=== PATIENT | female | born 2000 | race Caucasian/White ===

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

== ENCOUNTER 2021-12-31 19:20 | Emergency (ER) | payer OTHER ==
[2021-12-31] MEDS ORDERED: Sodium Chloride 0.9% 1000 ML 1,000 ML IV STA ×2 (20:14→22:56)
[2021-12-31] MEDS ORDERED: TYLENOL 325 MG PO ONE (20:14)
[2021-12-31] MEDS ORDERED: Zofran 4 MG/2 ML VIAL IV ONE (20:14)
[2021-12-31 20:35] LABS: Absolute Neutrophil Ct (ANC) 9.76 (1.4-6.9); Basophil (Absolute #) 0.02 (0-0.4); Eosinophil % 0.3 % (0.00-5.0); Eosinophil (Absolute #) 0.04 (0-0.5); Hematocrit 41.3 % (35-47); Hemoglobin 14.6 gm/dl (12.0-16.0); Lymphocyte (Absolute #) 2.84 (1.0-4.6); Lymphocytes % 20.9 % (24.0-44.0); Mean Cell Volume 86.2 fl (78-100); Mean Corpuscular Hemoglobin 30.5 pg (26-32); Mean Corpuscular Hgb Concent. 35.4 g/dl (32-36); Mean Platelet Volume 10.6 fl (7.5-11.0); Monocytes % 6.6 % (0.0-12.0); Neutrophil % 72.1 % (36.0-66.0); Platelet Count 288 K/mm3 (150-450); Red Blood Count 4.79 M/mm3 (4.1-5.4); Red Cell Distribution Width 12.7 % (11.5-14.0); White Blood Count 13.6 K/mm3 (4.0-10.5)
[2021-12-31 20:47] LABS: ALKALINE PHOSPHATASE 71 U/L (38-126); ANION GAP 19.4 MEQ/L (5-15); BLOOD UREA NITROGEN 12 mg/dL (7-17); CHLORIDE 105 mmol/L (98-107); Carbon Dioxide 17 mmol/L (22-30); Creatinine 1 0.59 mg/dL (0.52-1.04); EST GLOMERULAR FILTRATION RATE > 60.0 ML/MIN; Glucose 86 mg/dL (74-106); LIPASE 39 U/L (23-300); Potassium 3.4 mmol/L (3.5-5.1); SGOT/AST 27 U/L (14-36); SGPT/ALT 22 U/L (0-35); SODIUM 139 mmol/L (137-145); Total Protein 8.9 g/dL (6.3-8.2)
--- NOTE | 2021-12-31 21:02 | ERPHSYRPT ---
- History of Present Illness Time Seen by Provider: 12/31/21 19:22 Source: patient Exam Limitations: no limitations Patient Subjective Stated Complaint: Nausea and vomitting since 0600 am this morning, was having morning sickness about once an am would vomit once and then be fine the rest of the day. C/O severe body aches as well. Fever free . Triage Nursing Assessment: Pt A&Ox3 Skin pink, W&D. pt very anxious at this time, hyperventilating, resp rapid feels nauserated. cool cloth applied and talked pt through breathing exercises to calm pt down. Physician History: 21 years old 2 para 0 at 7 weeks gestation presented in the ER with nausea and multiple episodes of nonprojectile, nonbilious vomiting since 6 AM today. Patient reports she is not able to hold anything down and has been trying on her routine nausea/vomiting medication which does not seem working. She feels weak fatigued tired and dehydrated. Patient reports this is different than her routine morning sickness. Denies any abdominal pain, pelvic cramping, vaginal bleeding or discharge. She has ultrasound done earlier today as a ro utine which showed single IUP with good heart tones. Timing/Duration: today, intermittent, sudden, worse Severity: moderate, severe Associated Symptoms: nausea, vomiting, malaise, weakness, No abdominal pain Allergies/Adverse Reactions: No Known Drug Allergies Allergy (Unverified 06/15/18 17:12) Hx Tetanus, Diphtheria Vaccination/Date Given: Yes Hx Influenza Vaccination/Date Given: No Hx Pneumococcal Vaccination/Date Given: No Immunizations Up to Date: Yes Travel Risk - International Travel Have you traveled outside of the country in past 3 weeks: No - Coronavirus Screening Symptoms: Shortness of Breath, Vomiting/Diarrhea, Headaches/Body Aches/Fatigue Close contact with a COVID-19 positive Pt in past 14-21 Days: No - Vaccine Status Have you recieved a Covid-19 vaccination: No - Review of Systems Constitutional: Fatigue, Weakness Eyes: No Symptoms Ears, Nose, & Throat: No Symptoms Respiratory: No Symptoms Cardiac: No Symptoms Abdominal/Gastrointestinal: Nausea, Vomiting Genitourinary Symptoms: Musculoskeletal: No Symptoms Skin: No Symptoms Neurological: No Symptoms Psychological: No Symptoms Hematologic/Lymphatic: No Symptoms Immunological/Allergic: No Symptoms - Past Medical History Pertinent Past Medical History: No Neurological History: No Pertinent History ENT History: No Pertinent History Cardiac History: No Pertinent History Respiratory History: No Pertinent History Endocrine Medical History: No Pertinent History Musculoskeletal History: No Pertinent History GI Medical History: No Pertinent History History: No Pertinent History Psycho-Social History: No Pertinent History Female Reproductive Disorders: No Pertinent History - Past Surgical History Past Surgical History: Yes (Right wrist) Neuro Surgical History: No Pertinent History Cardiac: No Pertinent History - Social History Smoking Status: Former smoker Exposure to second hand smoke: No Drug Use: none Patient Lives Alone: No - Female History Hx Now: Yes Expected Date of Delivery: 08/18/22 Gestational Age: 7 wks - Nursing Vital Signs Nursing Vital Signs: Initial Vital Signs Temperature 97.9 F 12/31/21 20:06 Pulse Rate 64 12/31/21 20:06 Respiratory Rate 14 12/31/21 20:06 Blood Pressure 130/69 12/31/21 20:06 O2 Sat by Pulse Oximetry 99 12/31/21 20:06 Pain Scale Pain Intensity 0 - Physical Exam General Appearance: no apparent distress, alert Eye Exam: PERRL/EOMI, eyes nml inspection Ears, Nose, Throat Exam: normal ENT inspection, TMs normal, pharynx normal, moist mucous membranes Neck Exam: normal inspection, non-tender, supple, full range of motion Respiratory Exam: normal breath sounds, lungs clear Cardiovascular Exam: regular rate/rhythm, normal heart sounds Gastrointestinal/Abdomen Exam: soft, normal bowel sounds, No tenderness (History of) Back Exam: normal inspection, normal range of motion Extremity Exam: normal inspection, normal range of motion Neurologic Exam: alert, oriented x 3, cooperative Skin Exam: normal color SpO2 Interpretation: normal SpO2: 100 O2 Delivery: Room Air Ordered Tests: Active Orders 24 hr Category Date Time Status IV Insertion STAT Care 12/31/21 20:14 Active NPO (ED) STAT Care 12/31/21 20:14 Active CBC W DIFF Stat Lab 12/31/21 20:20 Completed CMP Stat Lab 12/31/21 20:20 Completed LIPASE Stat Lab 12/31/21 20:20 Completed UA W/RFX CULTURE Stat Lab 12/31/21 22:37 Ordered Medication Summary Generic Name Dose Route Start Last Admin Trade Name Freq PRN Reason Stop Dose Admin Sodium Chloride 1,000 mls @ 999 mls/hr 12/31/21 22:56 Sodium Chloride 0.9% 1000 Ml IV 12/31/21 23:56 .Q1H1M STA Discontinued Medications Generic Name Dose Route Start Last Admin Trade Name Rock PRN Reason Stop Dose Admin Acetaminophen 975 mg 12/31/21 20:14 12/31/21 21:40 Acetaminophen 325 Mg Tablet PO 12/31/21 20:15 975 mg STAT ONE Administration Acetaminophen Confirm 12/31/21 21:39 Acetaminophen 325 Mg Tablet Administered 12/31/21 21:40 Dose 975 mg .ROUTE .STK-MED ONE Acetaminophen Confirm 12/31/21 21:42 Acetaminophen 325 Mg Tablet Administered 12/31/21 21:43 Dose 325 mg .ROUTE .STK-MED ONE Sodium Chloride 1,000 mls @ 999 mls/hr 12/31/21 20:14 12/31/21 22:39 Sodium Chloride 0.9% 1000 Ml IV 12/31/21 21:14 Infused .Q1H1M STA Infusion Sodium Chloride Confirm 12/31/21 21:40 Sodium Chloride 0.9% 1000 Ml Administered 12/31/21 21:41 Dose 1,000 mls @ ud .ROUTE .STK-MED ONE Sodium Chloride Confirm 12/31/21 22:57 Sodium Chloride 0.9% 1000 Ml Administered 12/31/21 22:58 Dose 1,000 mls @ ud .ROUTE .STK-MED ONE Sodium Chloride Confirm 12/31/21 23:01 Sodium Chloride 0.9% 1000 Ml Administered 12/31/21 23:02 Dose 1,000 mls @ ud .ROUTE .STK-MED ONE Ondansetron HCl 4 mg 12/31/21 20:14 12/31/21 21:40 Ondansetron Hcl 4 Mg/2 Ml Vial IV 12/31/21 20:15 4 mg STAT ONE Administration Ondansetron HCl Confirm 12/31/21 21:39 Ondansetron Hcl 4 Mg/2 Ml Vial Administered 12/31/21 21:40 Dose 4 mg .ROUTE .STK-MED ONE Lab/Rad Data: Laboratory Result Diagrams 12/31/21 20:20 12/31/21 20:20 Laboratory Results 12/31/21 12/31/21 Range/Units 20:20 20:20 WBC 13.6 H (4.0-10.5) K/mm3 RBC 4.79 (4.1-5.4) M/mm3 Hgb 14.6 (12.0-16.0) gm/dl Hct 41.3 (35-47) % MCV 86.2 (78-100) fl MCH 30.5 (26-32) pg MCHC 35.4 (32-36) g/dl RDW 12.7 (11.5-14.0) % Plt Count 288 (150-450) K/mm3 MPV 10.6 (7.5-11.0) fl Gran % 72.1 H (36.0-66.0) % Eos # (Auto) 0.04 (0-0.5) Absolute Lymphs (auto) 2.84 (1.0-4.6) Absolute Monos (auto) 0.90 (0.0-1.3) Lymphocytes % 20.9 L (24.0-44.0) % Monocytes % 6.6 (0.0-12.0) % Eosinophils % 0.3 (0.00-5.0) % Basophils % 0.1 (0.0-0.4) % Absolute Granulocytes 9.76 H (1.4-6.9) Basophils # 0.02 (0-0.4) Sodium 139 (137-145) mmol/L Potassium 3.4 L (3.5-5.1) mmol/L Chloride 105 (98-107) mmol/L Carbon Dioxide 17 L (22-30) mmol/L Anion Gap 19.4 H (5-15) MEQ/L BUN 12 (7-17) mg/dL Creatinine 0.59 (0.52-1.04) mg/dL Estimated GFR > 60.0 ML/MIN Glucose 86 (74-106) mg/dL Calcium 10.0 (8.4-10.2) mg/dL Total Bilirubin 1.20 (0.2-1.3) mg/dL AST 27 (14-36) U/L ALT 22 (0-35) U/L Alkaline Phosphatase 71 (38-126) U/L Serum Total Protein 8.9 H (6.3-8.2) g/dL Albumin 5.0 (3.5-5.0) g/dL Lipase 39 (23-300) U/L - Progress Progress: improved Progress Note: 12/31/21 23:11 She is given fluids and Zofran, on reevaluation feeling much better. Work-up consistent with some dehydration. She has ultrasound done today which is positive for single IUP with good heart tones. Do not think she needs another scan and does not have any abdominal pain/pelvic pain/cramping, vaginal bleeding or discharge. Stable for discharge with outpatient follow-up. She is advised to continue with her home medications for nausea and vomiting. Counseled pt/family regarding: lab results, diagnosis, need for follow-up - Departure Departure Disposition: Home Clinical Impression: Nausea/vomiting in Condition: Stable Critical Care Time: No Referrals: AUNG VELEZ MD [Primary Care Provider] - Follow up/PCP as directed (1-2 days for reevaluation) Instructions: Nausea and Vomiting of (DC) Additional Instructions: Drink plenty of fluids. Take Zofran as needed. Follow-up with primary OB for reevaluation in 1 to 2 days. Return to ER if having pelvic cramping, vaginal bleeding discharge etc. Prescriptions: Ondansetron ODT 4 MG [Zofran Odt 4 mg] 1 ea PO QIDPRN PRN #7 tablet PRN Reason: n/v
[2021-12-31] MEDS ORDERED: TYLENOL 325 MG ONE ×2 (21:39→21:42)
[2021-12-31] MEDS ORDERED: Zofran 4 MG/2 ML VIAL ONE (21:39)
[2021-12-31] MEDS ORDERED: Sodium Chloride 0.9% 1000 ML 0 ML ONE (21:40)
[2021-12-31] MEDS ORDERED: Sodium Chloride 0.9% 1000 ML 1,000 ML ONE ×2 (22:57→23:01)
[2021-12-31 23:27] LABS: Appearance CLOUDY (CLEAR); Bilirubin SMALL (NEGATIVE); Glucose NEGATIVE (NEGATIVE); Ketones >=160 (NEGATIVE); Ph 6.5 (5-6); Protein,Urine Dip 100 (Negative); RBC NEGATIVE Ery/ul (0-5); Specific Gravity >=1.030 (1.005-1.025)
[2021-12-31 23:28] LABS: Dipstick done @ ? MAIN LAB; Nitrite NEGATIVE (NEGATIVE); Urobilinogen 1 mg/dL (0-1)
[2021-12-31 23:33] LABS: Bacteria FEW /HPF (NEGATIVE); Epithelial Cells FEW /HPF (FEW); Mucus MODERATE /HPF (NEGATIVE); WBC 51-100 /HPF (0-5)
[2021-12-31 23:36] LABS: Urine Cultured Indicated? YES
[2022-01-01 00:19] VITALS: BP 97/46; PULSE 59; O2SAT 99
== END 2022-01-01 00:40 | disposition home or self-care (01) ==
LOC: ED 19:20
DX: O21.9 Vomiting of pregnancy, unspecified (principal); Z3A.01 Less than 8 weeks gestation of pregnancy; R53.1 Weakness
CPT/HCPCS: 36000; 36415; 80053; 81015; 83690; 85025; 87086; 96360; 96374; 99284; J2405; A9270-GY

== ENCOUNTER 2022-07-23 11:31 | Observation (INO) | payer OTHER ==
[2022-07-23 12:22] LABS: Absolute Neutrophil Ct (ANC) 6.78 x10^3/uL (1.4-6.9); Basophil (Absolute #) 0.02 x10^3/uL (0-0.4); Eosinophil % 0.9 % (0.00-5.0); Eosinophil (Absolute #) 0.09 x10^3/uL (0-0.5); Hematocrit 32.2 % (35-47); Hemoglobin 10.2 g/dL (12.0-16.0); Lymphocyte (Absolute #) 2.19 x10^3/uL (1.0-4.6); Mean Cell Volume 87.3 fL (78-100); Mean Corpuscular Hemoglobin 27.6 pg (26-32); Mean Corpuscular Hgb Concent. 31.7 g/dL (32-36); Mean Platelet Volume 10.4 fL (7.5-11.0); Monocyte (Absolute #) 0.84 x10^3/uL (0.0-1.3); Monocytes % 8.4 % (0.0-12.0); Neutrophil % 68.1 % (36.0-66.0); Platelet Count 281 x10^3/uL (150-450); Red Blood Count 3.69 x10^6/uL (4.1-5.4); Red Cell Distribution Width 12.4 % (11.5-14.0)
[2022-07-23 12:35] LABS: ALBUMIN 3.5 g/dL (3.5-5.0); ALKALINE PHOSPHATASE 215 U/L (38-126); ANION GAP 9.7 MEQ/L (5-15); BLOOD UREA NITROGEN 10 mg/dL (7-17); CHLORIDE 107 mmol/L (98-107); Calcium 8.4 mg/dL (8.4-10.2); Carbon Dioxide 22 mmol/L (22-30); EST GLOMERULAR FILTRATION RATE > 60.0 ML/MIN; Glucose 82 mg/dL (74-106); Potassium 4.1 mmol/L (3.5-5.1); SGOT/AST 20 U/L (14-36); SGPT/ALT 14 U/L (0-35); SODIUM 135 mmol/L (137-145); Total Protein 7.3 g/dL (6.3-8.2)
[2022-07-23 12:41] VITALS: PULSE 80
[2022-07-23 12:45] LABS: Appearance SLIGHTLY CLOUDY (CLEAR); Bilirubin NEGATIVE (NEGATIVE); Glucose NEGATIVE (NEGATIVE)
[2022-07-23 12:46] LABS: Dipstick done @ ? MAIN LAB; Ketones NEGATIVE (NEGATIVE); Nitrite NEGATIVE (NEGATIVE); Ph 6.5 (5-6); Protein,Urine Dip 30 (Negative); RBC NEGATIVE Ery/ul (0-5); Urobilinogen 0.2 mg/dL (0-1)
[2022-07-23 12:54] LABS: Bacteria RARE /HPF (NEGATIVE); Epithelial Cells FEW /HPF (FEW); Mucus SLIGHT /HPF (NEGATIVE); RBC 0-2 /HPF (0-2); WBC 0-2 /HPF (0-5)
[2022-07-23 12:58] LABS: Urine Cultured Indicated? YES
--- NOTE | 2022-07-23 13:34 | XRAY ---
Exam: OB ultrasound limited from 07/23/2022. Comparison: OB ultrasound greater than 14 weeks from 03/30/2022. Indication: Late third trimester with -induced hypertension (PIH). Assess KAYLEE. Findings: A single live intrauterine gestation is seen. cardiac activity was identified with a heart rate of 146 bpm. The amniotic fluid index measured 12.26 cm which is within normal limits. Impression: 1. Amniotic fluid index measured 12.26 cm which is within normal limits for this stage of . 2. Single live intrauterine fetus with a heart rate of 146 bpm.
[2022-07-23 14:24] VITALS: BP 138/84
== END 2022-07-23 14:15 | disposition home or self-care (01) ==
LOC: OB 11:31
PROVIDERS: ADMIT Family Medicine; ATTEND Family Medicine
DX: Z34.83 Encounter for supervision of other normal pregnancy, third trimester (principal); Z3A.36 36 weeks gestation of pregnancy
CPT/HCPCS: 36415; 59025; 76815; 80053; 81015; 85025; 87086; 99213; G0378

== ENCOUNTER 2022-08-10 10:12 | Inpatient (IN) | payer OTHER ==
[2022-08-10] MEDS ORDERED: Cervidil 10 MG VAG SCH (14:30)
[2022-08-10] MEDS ORDERED: TYLENOL EXTRA STRENGTH 500 MG PO PRN (15:53)
[2022-08-10] MEDS ORDERED: BRETHINE 1 MG/ML SQ PRN (15:53)
[2022-08-10] MEDS ORDERED: Lactated Ringers 1,000 ML IV SCH (16:00)
[2022-08-10] MEDS ORDERED: PITOCIN 30 UNITS/ LR 500 ML 30 UNITS/500 ML PLAST..BAG IV SCH (16:00)
[2022-08-10 17:42] LABS: Absolute Neutrophil Ct (ANC) 6.61 x10^3/uL (1.4-6.9); Basophil (Absolute #) 0.03 x10^3/uL (0-0.4); Eosinophil (Absolute #) 0.11 x10^3/uL (0-0.5); Hemoglobin 10.5 g/dL (12.0-16.0); Lymphocyte (Absolute #) 3.02 x10^3/uL (1.0-4.6); Lymphocytes % 28.3 % (24.0-44.0); Mean Cell Volume 81.8 fL (78-100); Mean Corpuscular Hemoglobin 26.9 pg (26-32); Mean Corpuscular Hgb Concent. 32.8 g/dL (32-36); Mean Platelet Volume 11.3 fL (7.5-11.0); Monocyte (Absolute #) 0.88 x10^3/uL (0.0-1.3); Monocytes % 8.2 % (0.0-12.0); Neutrophil % 61.8 % (36.0-66.0); Platelet Count 346 x10^3/uL (150-450); Red Blood Count 3.91 x10^6/uL (4.1-5.4); Red Cell Distribution Width 13.4 % (11.5-14.0); White Blood Count 10.7 x10^3/uL (4.0-10.5)
[2022-08-10 18:10] LABS: Amphetamine,Urine NEGATIVE (NEGATIVE); Barbiturate,Urine NEGATIVE (NEGATIVE); Cocaine,Urine NEGATIVE (NEGATIVE); Methadone,Urine NEGATIVE (NEGATIVE); Opiate,Urine NEGATIVE (NEGATIVE); PCP,Urine NEGATIVE (NEGATIVE); THC,Urine NEGATIVE (NEGATIVE)
[2022-08-10 18:13] LABS: Benzodiazepine,Urine NEGATIVE (NEGATIVE)
[2022-08-10 19:30] LABS: ABO TYPING A; Antibody Screen NEGATIVE (NEGATIVE); RH TYPING NEGATIVE
[2022-08-10] MEDS: Lactated Ringers 1,000 ML IV SCH ×2 (20:22→20:36)
[2022-08-10] MEDS: TYLENOL EXTRA STRENGTH 500 MG PO PRN (20:35)
[2022-08-11] MEDS ORDERED: Zofran 4 MG/2 ML VIAL IV PRN (00:13)
[2022-08-11] MEDS: STADOL 2 MG IV PRN ×2 (00:40→10:40)
[2022-08-11] MEDS: TYLENOL EXTRA STRENGTH 500 MG PO PRN ×2 (00:41→20:33)
[2022-08-11] MEDS: Lactated Ringers 1,000 ML IV SCH ×4 (01:30→20:15)
[2022-08-11] MEDS ORDERED: FENTANYL 2 MCG-BUPIV 0.125%-NS 250 ML Epidur 250 ML EPIDURAL SCH (08:00)
[2022-08-11] MEDS ORDERED: Ephedrine Sulfate 50 MG/ML IV PRN (08:00)
[2022-08-11] MEDS ORDERED: Lactated Ringers 1,000 ML IV ONE (08:00)
[2022-08-11] MEDS ORDERED: Sensorcaine 0.25% 10 ML ONE ×2 (13:39→17:31)
[2022-08-11] MEDS ORDERED: LANSINOH 40 GM TOP PRN (15:53)
[2022-08-11] MEDS ORDERED: TUCKS TP PRN (15:53)
[2022-08-11] MEDS ORDERED: XYLOCAINE 1% HCL 20 ML MDV IJ PRN (15:53)
[2022-08-11] MEDS ORDERED: Dermoplast Spray TP PRN (15:53)
[2022-08-11] MEDS ORDERED: NORCO 5/325 MG PO PRN (21:26)
[2022-08-12 05:37] LABS: Absolute Neutrophil Ct (ANC) 13.04 x10^3/uL (1.4-6.9); Basophil (Absolute #) 0.04 x10^3/uL (0-0.4); Eosinophil % 0.2 % (0.00-5.0); Eosinophil (Absolute #) 0.04 x10^3/uL (0-0.5); Hematocrit 28.7 % (35-47); Hemoglobin 9.3 g/dL (12.0-16.0); Lymphocyte (Absolute #) 2.69 x10^3/uL (1.0-4.6); Lymphocytes % 15.4 % (24.0-44.0); Mean Cell Volume 82.9 fL (78-100); Mean Corpuscular Hemoglobin 26.9 pg (26-32); Mean Corpuscular Hgb Concent. 32.4 g/dL (32-36); Mean Platelet Volume 11.6 fL (7.5-11.0); Monocyte (Absolute #) 1.62 x10^3/uL (0.0-1.3); Monocytes % 9.3 % (0.0-12.0); Neutrophil % 74.5 % (36.0-66.0); Platelet Count 284 x10^3/uL (150-450); Red Blood Count 3.46 x10^6/uL (4.1-5.4); Red Cell Distribution Width 13.8 % (11.5-14.0); White Blood Count 17.5 x10^3/uL (4.0-10.5)
[2022-08-12 06:39] LABS: Slide Review 1 YES
--- NOTE | 2022-08-12 07:12 | PCM.NOTE ---
Date and Time: 08/12/22710 Subjective Assessment: mild lochia, pain is mild. tolerating po. no problems or concerns. Objective Exam General Appearance: no apparent distress Respiratory Exam: normal breath sounds, lungs clear, No respiratory distress Cardiovascular Exam: regular rate/rhythm, normal heart sounds Gastrointestinal/Abdomen Exam: soft (fundus firm) Extremity Exam: normal inspection, normal range of motion OBJECTIVE DATA Vital Signs: Vital Signs - 24 hr Temp Pulse Resp BP BP Pulse Ox 08/12/22 02:00 99.0 F 101 H 20 134/76 96 08/11/22 23:30 98.8 F 103 H 18 129/71 97 08/11/22 22:30 98.9 F 95 H 137/69 08/11/22 21:30 109 H 18 133/75 08/11/22 21:15 113 H 18 124/71 08/11/22 21:00 99.3 F 113 H 20 141/65 08/11/22 20:45 101 H 124/64 08/11/22 20:30 110 H 20 143/67 08/11/22 20:01 155 H 165/67 97 08/11/22 20:00 112 H 142/63 97 08/11/22 19:45 130 H 146/65 98 08/11/22 19:30 134 H 100 08/11/22 19:15 114 H 121/72 98 08/11/22 19:00 99.8 F 117 H 18 132/75 99 08/11/22 18:45 98.7 F 141 H 18 132/61 99 08/11/22 18:30 98.7 F 123 H 18 132/61 99 08/11/22 18:15 98.7 F 140 H 18 115/60 99 08/11/22 18:00 98.7 F 111 H 18 118/57 99 08/11/22 17:45 98.7 F 91 H 18 110/57 99 08/11/22 17:30 98.7 F 77 18 134/76 99 08/11/22 17:15 98.7 F 100 H 18 134/75 99 08/11/22 17:00 98.7 F 84 18 147/78 99 08/11/22 16:45 98.7 F 77 18 138/77 99 08/11/22 16:30 98.7 F 73 18 139/84 99 08/11/22 16:15 98.7 F 109 H 18 119/76 99 08/11/22 16:00 98.7 F 103 H 18 117/72 131/67 99 08/11/22 15:45 98.7 F 100 H 18 117/74 99 08/11/22 15:30 98.7 F 104 H 18 111/62 99 08/11/22 15:15 98.7 F 101 H 18 109/58 99 08/11/22 15:00 98.7 F 89 18 118/61 99 08/11/22 14:45 98.7 F 100 H 18 137/76 99 08/11/22 14:30 98.7 F 76 18 122/57 99 08/11/22 14:15 98.1 F 83 18 114/60 99 08/11/22 14:00 98.1 F 80 18 109/57 99 08/11/22 13:45 98.1 F 80 18 109/56 99 08/11/22 13:30 98.0 F 72 18 120/69 99 08/11/22 13:15 98.0 F 75 18 146/79 99 08/11/22 13:00 98.0 F 86 18 134/79 99 08/11/22 12:45 98.0 F 81 18 125/75 99 08/11/22 12:30 98.0 F 96 H 18 121/87 99 08/11/22 12:00 98.0 F 85 18 123/89 131/67 99 08/11/22 11:45 98.0 F 75 18 121/78 99 08/11/22 11:30 98.0 F 75 18 134/68 99 08/11/22 11:15 98.0 F 85 18 128/78 99 08/11/22 11:00 98.0 F 62 18 126/71 99 08/11/22 10:45 98.0 F 67 18 140/83 99 08/11/22 10:30 98.0 F 74 18 138/84 99 08/11/22 10:15 98.0 F 71 18 130/81 99 08/11/22 10:00 98.0 F 80 18 119/75 99 08/11/22 09:45 98.0 F 80 18 119/75 99 08/11/22 09:30 98.0 F 80 18 136/87 99 08/11/22 09:15 98.0 F 88 18 134/85 99 08/11/22 09:00 98.0 F 97 H 18 125/72 99 08/11/22 08:45 98.0 F 102 H 18 130/79 99 08/11/22 08:30 98.0 F 89 18 132/71 99 08/11/22 08:15 98.0 F 102 H 18 124/77 99 08/11/22 08:00 98.0 F 90 18 118/72 131/67 99 08/11/22 07:45 98.0 F 71 18 133/76 99 08/11/22 07:30 98.0 F 73 18 134/72 99 08/11/22 07:15 98.0 F 79 18 136/88 99 Pain Assessment - Last Documented Pain Intensity [Posterior] 0 Pain Intensity 0 Pain Scale Used 0-10 Pain Scale Intake and Output: Intake & Output 08/09/22 08/10/22 08/11/22 08/12/22 11:59 11:59 11:59 11:59 Intake Total 3399 4977 Balance 3398 497 Weight 104.78 kg Lab Results: Lab Results-Last 24 Hours 08/12/22 Range/Units 04:12 WBC 17.5 H (4.0-10.5) x10^3/uL RBC 3.46 L (4.1-5.4) x10^6/uL Hgb 9.3 L (12.0-16.0) g/dL Hct 28.7 L (35-47) % MCV 82.9 (78-100) fL MCH 26.9 (26-32) pg MCHC 32.4 (32-36) g/dL RDW 13.8 (11.5-14.0) % Plt Count 284 (150-450) x10^3/uL MPV 11.6 H (7.5-11.0) fL Gran % 74.5 H (36.0-66.0) % Immature Gran % (Auto) 0.4 (0.00-0.4) % Nucleat RBC Rel Count 0.0 (0.00-0.1) % Eos # (Auto) 0.04 (0-0.5) x10^3/uL Immature Gran # (Auto) 0.07 H (0.00-0.03) x10^3u/L Absolute Lymphs (auto) 2.69 (1.0-4.6) x10^3/uL Absolute Monos (auto) 1.62 H (0.0-1.3) x10^3/uL Absolute Nucleated RBC 0.00 (0.00-0.01) x10^3u/L Lymphocytes % 15.4 L (24.0-44.0) % Monocytes % 9.3 (0.0-12.0) % Eosinophils % 0.2 (0.00-5.0) % Basophils % 0.2 (0.0-0.4) % Absolute Granulocytes 13.04 H (1.4-6.9) x10^3/uL Basophils # 0.04 (0-0.4) x10^3/uL Slides for Path Review YES Multi-Disciplinary Progress Notes: Multi-Disciplinary Progress Notes 08/11/22 20:27 Respiratory Note by Minoo Simpson I WAS CALLED TO BE ON STANDBY TO HELP WITH THE CARE OF THIS INFANT AFTER DELIVERY. SKIN TO SKIN WAS DONE IMMEDIATELY AFTER FOR APPROXIMATELY ONE [place]. THE WAS THEN BROUGHT TO THE WARMER AND DRIED. CLEAR BS WERE HEARD AND THE BABY HAD A SPO2 READING OF 100% APPROXIMATELY 4 MINUTES AFTER . HEART RATE AND RESPIRATORY RATE WERE STABLE. VERY LITTLE SECRETIONS WERE SUCTIONED OUT OF THE 'S MOUTH. NO FURTHER RESPIRATORY INTERVENTION WAS NEEDED AT THIS TIME. Initialized on 08/11/22 20:27 - END OF NOTE Assessment/Plan (1) Vaginal delivery Current Visit: Yes Status: Acute Assessment & Plan: routine pp care Code(s): O80 - ENCOUNTER FOR FULL-TERM UNCOMPLICATED DELIVERY (2) Second degree perineal laceration during delivery Current Visit: Yes Status: Acute Code(s): O70.1 - SECOND DEGREE PERINEAL LACERATION DURING DELIVERY
[2022-08-12] MEDS: TYLENOL EXTRA STRENGTH 500 MG PO PRN ×2 (08:50→18:08)
[2022-08-12] MEDS: FERREX 150 PO SCH (09:48)
[2022-08-12] MEDS: Docusate Sodium 100 MG PO SCH ×2 (09:48→21:58)
[2022-08-12] MEDS ORDERED: Adacel Vial IM ONE (10:00)
[2022-08-12] MEDS ORDERED: Rhogam Plus 300 MCG IM ONE (15:53)
[2022-08-12 17:34] LABS: HBsAg Screen Negative (Negative); HIV Screen 4th Generation wRfx Non Reactive (Non Reactive); RPR Non Reactive (Non Reactive)
[2022-08-12] MEDS: MOTRIN 400 MG PO PRN (20:39)
[2022-08-13] MEDS: MOTRIN 400 MG PO PRN (04:15)
--- NOTE | 2022-08-13 07:31 | PCM.DS ---
Discharge Summary Date of Admission: 08/11/22 12:47 Admitting Physician: AUNG VELEZ Consults: Consults on Case 08/11/22 08:00 Notify Anesthesia Provider PRN 08/12/22 09:00 Navigation ONCE Primary Care Provider: AUNG VELEZ Allergies Allergies No Known Drug Allergies Allergy (Verified 08/10/22 19:17) Hospital Summary - Hospital Course Hospital Course: patient had uncomplicated , no complications. and well bonded with - Vitals & Intake/Output Vital Signs: Vital Signs Temperature 98.3 F 08/13/22 02:00 Pulse Rate 67 08/13/22 02:00 Respiratory Rate 20 08/13/22 02:00 Blood Pressure 122/66 08/13/22 02:00 O2 Sat by Pulse Oximetry 98 08/13/22 02:00 Intake & Output: Intake & Output 08/10/22 08/11/22 08/12/22 08/13/22 11:59 11:59 11:59 11:59 Intake Total 3395 4979 3629 Balance 3395 4979 3629 Weight 104.78 kg - Lab Result Diagrams: 08/12/22 04:12 Lab Results-Last 24 Hrs: Lab Results-Last 24 Hours 08/10/22 08/10/22 08/11/22 Range/Units 05:40 05:40 21:50 RPR Non Reactive (Non Reactive) Hep Bs Antigen Negative (Negative) HIV 1&2 Ab/P24 Ag 4thGn Non Reactive (Non Reactive) Screen SEE SEPARATE REPORT Micro Results-Entire Visit: Microbiology 08/11/22 16:23 Urine Culture - Preliminary Catherized NO GROWTH TO DATE - Procedures and Test Procedures and Tests throughout Hospitalization: Therapy Orders & Screens 08/11/22 19:50 Standby STAT Comment: Diagnosis: IUP Discharge Exam General Appearance: no apparent distress, alert Neurologic Exam: alert Respiratory Exam: normal breath sounds, lungs clear, No respiratory distress Cardiovascular Exam: regular rate/rhythm, normal heart sounds Gastrointestinal/Abdomen Exam: soft, No tenderness, No mass Extremity Exam: normal inspection, normal range of motion Skin Exam: normal color, warm, dry Final Diagnosis/Problem List - Final Discharge Diagnosis/Problem (1) Vaginal delivery Current Visit: Yes Status: Acute Code(s): O80 - ENCOUNTER FOR FULL-TERM UNCOMPLICATED DELIVERY (2) Second degree perineal laceration during delivery Current Visit: Yes Status: Acute Code(s): O70.1 - SECOND DEGREE PERINEAL LACERATION DURING DELIVERY - Discharge Disposition: Home, Self-Care Condition: Stable Prescriptions: Continue Vit No.179/Iron/Folic [ Tablet] 1 mg PO DAILY Famotidine [Zantac-360 (Famotidine)] 20 mg PO DAILY Follow up with: AUNG VELEZ MD [Primary Care Provider] -
[2022-08-13] MEDS: Docusate Sodium 100 MG PO SCH (09:29)
[2022-08-13] MEDS: FERREX 150 PO SCH (09:29)
[2022-08-13 14:25] VITALS: BP 143/82; PULSE 82; O2SAT 96
== END 2022-08-13 14:00 | disposition home or self-care (01) | DRG 807 ==
LOC: OB 12:47 → OBSVTOIN 08-11 12:47
PROVIDERS: ADMIT Family Medicine; ATTEND Family Medicine
PROC: 10E0XZZ Delivery of Products of Conception, External Approach (ICD-10-PCS; principal; 2022-08-11)
PROC: 0KQM0ZZ Repair Perineum Muscle, Open Approach (ICD-10-PCS; 2022-08-11)
DX: O70.1 Second degree perineal laceration during delivery (principal); Z37.0 Single live birth; O13.4 Gestational [pregnancy-induced] hypertension without significant proteinuria, complicating childbirth; Z3A.39 39 weeks gestation of pregnancy; Z20.828 Contact with and (suspected) exposure to other viral communicable diseases
CPT/HCPCS: 36415; 80307; 85025; 85461; 86592; 86850; 86900; 86901; 87086; 87340; 87389; 90471; 90715; 94799; 96372; 99213; G0378; J0595; J2405; J2590; J2790; A9270-GY

== ENCOUNTER 2024-05-28 05:05 | Inpatient (IN) | payer OTHER ==
[~2024-05-28 05:05] MED LIST: BRETHINE 1 MG/ML SQ PRN; Lactated Ringers 1,000 ML IV ONE; Lactated Ringers 1,000 ML IV SCH; Nubain 10 MG/ML IV PRN; PITOCIN 30 UNITS/ LR 500 ML 30 UNITS/500 ML PLAST..BAG IV SCH; STADOL 2 MG IV PRN; XYLOCAINE 1% HCL 20 ML MDV IJ PRN
[2024-05-28 05:59] LABS: Absolute Neutrophil Ct (ANC) 4.25 x10^3/uL (1.56-6.13); BASOPHIL % 0.5 % (0.1-1.2); Basophil (Absolute #) 0.04 x10^3/uL (0.01-0.08); Eosinophil % 1.1 % (0.7-5.8); Eosinophil (Absolute #) 0.09 x10^3/uL (0.04-0.36); Hematocrit 33.9 % (34.1-44.9); Hemoglobin 11.1 g/dL (11.2-15.7); IMMATURE GRAN # 0.04 x10^3u/L (0.001-0.031); IMMATURE GRAN % 0.5 % (0.001-0.429); Lymphocyte (Absolute #) 3.17 x10^3/uL (1.18-3.74); Lymphocytes % 39.1 % (19.3-51.7); Mean Cell Volume 84.8 fL (79.4-94.8); Mean Corpuscular Hemoglobin 27.8 pg (25.6-32.2); Mean Corpuscular Hgb Concent. 32.7 g/dL (32.2-35.5); Mean Platelet Volume 11.1 fL (9.4-12.3); Monocyte (Absolute #) 0.52 x10^3/uL (0.24-0.86); Monocytes % 6.4 % (4.7-12.5); Neutrophil % 52.4 % (34.0-71.1); Platelet Count 252 x10^3/uL (182-369); Red Cell Distribution Width 17.1 % (11.7-14.4); White Blood Count 8.1 x10^3/uL (3.98-10.04)
[2024-05-28 06:07] LABS: Appearance Clear (Clear); Bacteria Moderate /HPF (None Seen); Bilirubin Negative (Negative); Blood Negative (Negative); Epithelial Cells Moderate /HPF (None Seen); Glucose, Urine Negative (Negative); Hyaline Casts NONE SEEN /LPF (0-2); Ketones Negative (Negative); Leukocyte Esterase Small (Negative); Nitrite Negative (Negative); Protein,Urine Dip Trace (Negative); RBC 0-2 /HPF (0-5)
[2024-05-28] MEDS: PITOCIN 30 UNITS/ LR 500 ML 30 UNITS/500 ML PLAST..BAG IV SCH (06:15)
[2024-05-28 06:24] LABS: Amphetamine,Urine NEGATIVE (NEGATIVE); Barbiturate,Urine NEGATIVE (NEGATIVE); Benzodiazepine,Urine NEGATIVE (NEGATIVE); Cocaine,Urine NEGATIVE (NEGATIVE); Methadone,Urine NEGATIVE (NEGATIVE); Opiate,Urine NEGATIVE (NEGATIVE); PCP,Urine NEGATIVE (NEGATIVE); THC,Urine NEGATIVE (NEGATIVE)
[2024-05-28] MEDS: Lactated Ringers 1,000 ML IV SCH (06:24)
[2024-05-28 06:53] LABS: ABO TYPING A; Antibody Screen NEGATIVE (NEGATIVE); RH TYPING NEGATIVE
[2024-05-28] MEDS: Lactated Ringers 1,000 ML IV ONE (08:47)
[2024-05-28] MEDS: FENTANYL 2 MCG-BUPIV 0.125%-NS 250 ML Epidur 250 ML EPIDURAL SCH (08:52)
[2024-05-28] MEDS: Zofran 4 MG/2 ML VIAL IV PRN (12:06)
[2024-05-28] MEDS: TYLENOL EXTRA STRENGTH 500 MG PO PRN (16:49)
[2024-05-28] MEDS: TUCKS TP PRN (17:50)
[2024-05-28] MEDS: LANSINOH 40 GM TOP PRN (17:51)
[2024-05-28] MEDS: Dermoplast Spray TP PRN (17:54)
[2024-05-28] MEDS: MOTRIN 400 MG PO PRN (18:57)
[2024-05-28] MEDS: Docusate Sodium 100 MG PO SCH (21:20)
[2024-05-29 05:32] LABS: Absolute Neutrophil Ct (ANC) 7.11 x10^3/uL (1.56-6.13); BASOPHIL % 0.3 % (0.1-1.2); Basophil (Absolute #) 0.04 x10^3/uL (0.01-0.08); Eosinophil % 1.1 % (0.7-5.8); Eosinophil (Absolute #) 0.13 x10^3/uL (0.04-0.36); Hematocrit 32.4 % (34.1-44.9); Hemoglobin 10.5 g/dL (11.2-15.7); IMMATURE GRAN # 0.04 x10^3u/L (0.001-0.031); IMMATURE GRAN % 0.3 % (0.001-0.429); Lymphocyte (Absolute #) 3.17 x10^3/uL (1.18-3.74); Lymphocytes % 27.5 % (19.3-51.7); Mean Corpuscular Hemoglobin 27.6 pg (25.6-32.2); Mean Corpuscular Hgb Concent. 32.4 g/dL (32.2-35.5); Monocyte (Absolute #) 1.03 x10^3/uL (0.24-0.86); Monocytes % 8.9 % (4.7-12.5); Neutrophil % 61.9 % (34.0-71.1); Platelet Count 195 x10^3/uL (182-369); Red Blood Count 3.81 x10^6/uL (3.93-5.22); Red Cell Distribution Width 17.4 % (11.7-14.4); White Blood Count 11.5 x10^3/uL (3.98-10.04)
[2024-05-29 08:38] LABS: RPR Non Reactive (Non Reactive)
--- NOTE | 2024-05-29 09:07 | PCM.DS ---
Discharge Summary Date of Admission: 05/28/24 08:28 Admitting Physician: AUNG VELEZ Consults: Consults on Case 05/28/24 17:22 Navigation ONCE Primary Care Provider: AUNG VELEZ Allergies Allergies No Known Drug Allergies Allergy (Verified 08/10/22 19:17) Hospital Summary - Hospital Course Hospital Course: patient had elective induction, healthy . uncomplicated vaginal delivery, no repair. well, mild lochia, pain from uterine cramping controlled with tylenol/ibuprofen. requesting discharge home at 24 hrs - Vitals & Intake/Output Vital Signs: Vital Signs Temperature 98.2 F 05/29/24 02:55 Pulse Rate 70 05/29/24 02:55 Respiratory Rate 18 05/29/24 02:55 Blood Pressure 119/70 05/29/24 02:55 O2 Sat by Pulse Oximetry 97 05/29/24 02:55 Intake & Output: Intake & Output 05/26/24 05/27/24 05/28/24 05/29/24 11:59 11:59 11:59 11:59 Intake Total 1500 500 Output Total 30 500 Balance 1470 0 Weight 96.162 kg - Lab Result Diagrams: 05/29/24 05:20 Lab Results-Last 24 Hrs: Lab Results-Last 24 Hours 05/28/24 05/28/24 05/29/24 Range/Units 05:45 17:20 05:20 WBC 11.5 H (3.98-10.04) x10^3/uL RBC 3.81 L (3.93-5.22) x10^6/uL Hgb 10.5 L (11.2-15.7) g/dL Hct 32.4 L (34.1-44.9) % MCV 85.0 (79.4-94.8) fL MCH 27.6 (25.6-32.2) pg MCHC 32.4 (32.2-35.5) g/dL RDW 17.4 H (11.7-14.4) % Plt Count 195 (182-369) x10^3/uL MPV 11.0 (9.4-12.3) fL Gran % 61.9 (34.0-71.1) % Immature Gran % (Auto) 0.3 (0.001-0.429) % Nucleat RBC Rel Count 0.0 (0.00-0.2) % Eos # (Auto) 0.13 (0.04-0.36) x10^3/uL Immature Gran # (Auto) 0.04 H (0.001-0.031) x10^3u/L Absolute Lymphs (auto) 3.17 (1.18-3.74) x10^3/uL Absolute Monos (auto) 1.03 H (0.24-0.86) x10^3/uL Absolute Nucleated RBC 0.00 (0.00-0.012) x10^3u/L Lymphocytes % 27.5 (19.3-51.7) % Monocytes % 8.9 (4.7-12.5) % Eosinophils % 1.1 (0.7-5.8) % Basophils % 0.3 (0.1-1.2) % Absolute Granulocytes 7.11 H (1.56-6.13) x10^3/uL Basophils # 0.04 (0.01-0.08) x10^3/uL RPR Non Reactive (Non Reactive) Screen SEE SEPARATE REPORT Micro Results-Entire Visit: Microbiology 05/28/24 11:43 Urine Culture - Preliminary Catherized NO GROWTH TO DATE 05/28/24 05:59 Urine Culture - Final Clean Catch Midstream <10K NORMAL SKIN JESUS PROBABLE SKIN CONTAMINANT Discharge Exam General Appearance: no apparent distress Neurologic Exam: alert, oriented x 3 Respiratory Exam: normal breath sounds, lungs clear, No respiratory distress Cardiovascular Exam: regular rate/rhythm, normal heart sounds Gastrointestinal/Abdomen Exam: soft, No tenderness, No mass Extremity Exam: normal inspection, normal range of motion Skin Exam: normal color, warm, dry Final Diagnosis/Problem List - Final Discharge Diagnosis/Problem (1) Vaginal delivery Current Visit: No Status: Acute Code(s): O80 - ENCOUNTER FOR FULL-TERM UNCOMPLICATED DELIVERY - Discharge Disposition: Home, Self-Care Condition: Stable Prescriptions: Continue Vit No.179/Iron/Folic [ Tablet] 1 mg PO DAILY Famotidine [Zantac-360 (Famotidine)] 20 mg PO DAILY lamoTRIgine [Lamotrigine] 200 mg PO DAILY buPROPion HCL [Bupropion HCl Sr] 150 mg PO BID Discontinued Ferrous Sulfate [Ferosul] 325 mg PO DAILY Follow up with: AUNG VELEZ MD [Primary Care Provider] - 6 weeks
[2024-05-29] MEDS: FERREX 150 PO SCH (09:59)
[2024-05-29] MEDS: Rhogam Plus 300 MCG IM ONE (10:01)
[2024-05-29 10:33] VITALS: O2SAT 98
[2024-05-29] MEDS: Adacel Vial IM ONE (17:40)
[2024-05-29 18:51] VITALS: BP 111/63; PULSE 66; RESP 18; TEMP 97.8
== END 2024-05-29 19:45 | disposition home or self-care (01) | DRG 807 ==
LOC: UNDOADMOB 05:05 → OB 05:05 → INTOOBSV 08:28 → OBSVTOIN 08:28 → OB 08:28
PROVIDERS: ADMIT Family Medicine; ATTEND Family Medicine
PROC: 10E0XZZ Delivery of Products of Conception, External Approach (ICD-10-PCS; principal; 2024-05-28)
DX: O80 Encounter for full-term uncomplicated delivery (principal); Z37.0 Single live birth; Z3A.39 39 weeks gestation of pregnancy
CPT/HCPCS: 36415; 80307; 81001; 81003; 85025; 85461; 86592; 86850; 86900; 86901; 87086; 90715; 96372; J2405; J2590; J2790; A9270-GY